=== PATIENT | male | born 1975 ===

== ENCOUNTER 2016-06-18 07:44 | Emergency (ER) | payer BC ==
[2016-06-18 07:45] VITALS: BMI 31.1
[2016-06-18 07:58] VITALS: TEMP 98.2
[2016-06-18] MEDS ORDERED: Bacitracin 500 Units/gm Oint Foilpak UD TOP STA (08:49)
[2016-06-18] MEDS ORDERED: Tetanus/Diphtheria Toxoids 0.5 ml Syringe IM ONE ×2 (08:49→08:59)
[2016-06-18] MEDS ORDERED: Lidocaine 1% w Epi 1:100,000 Inj INJ STA (08:50)
[2016-06-18] MEDS ORDERED: Bacitracin 500 Units/gm Oint Foilpak UD ONE (08:58)
[2016-06-18] MEDS ORDERED: Lidocaine 1% Inj (20ml) INFIL STA (09:06)
[2016-06-18] MEDS ORDERED: Lidocaine 1% Inj (20ml) ONE (09:07)
--- NOTE | 2016-06-18 09:49 | CT ---
CT maxillofacial bones without IV contrast Indication: Fall, left facial pain, chin laceration Comparison: None available Technique: Axial computed tomography images were obtained of the maxillofacial bones without the use of intravenous contrast. Coronal and sagittal reformatted images were generated and reviewed. This CT exam was performed using 1 or more of the falling dose reduction techniques: Automated exposure control, adjustment of the MAA and/or kV according to patient size, and/or use of iterative reconstruction technique. Radiation dose: Total exam DLP = 858.49 mGy-cm. Findings: Streak artifact from dental hardware. The facial bones appear intact displaced without acute fracture. The orbits appear unremarkable. The temporomandibular joints are located. Mastoid air cells appear clear. Mucosal thickening of the ethmoid air cells. Mucosal thickening of bilateral maxillary sinuses. Large (approximately 14 mm) left maxillary sinus mucosal cysts/retention polyp. The frontal sinuses appear clear. The sphenoid sinuses appear clear. No evidence of paranasal sinus air-fluid levels. The visualized brain appears grossly unremarkable. Impression: No acute fracture identified. Mucosal thickening of the ethmoid air cells. Mucosal thickening of bilateral maxillary sinuses. Large (approximately 14 mm) left maxillary sinus mucosal cysts/retention polyp. Correlate clinically for sinusitis.
--- NOTE | 2016-06-18 10:42 | C.PDOC ---
History Of Present Illness 40 year old male presents to the ED with complaints of jaw pain and chin laceration after tripping and falling last night and hitting his face on the ground. Patient went to [facility] [place] [place] last night at 11pm but due to the wait and business of the ED he left. Patient denies Headache, LOC or any other trauma at this time. Tetanus vaccination is not UTD. - HPI Time Seen by Provider: 06/18/16 08:14 Chief Complaint (Nursing): Trauma History Per: Patient History/Exam Limitations: no limitations Onset/Duration Of Symptoms: Hrs Injury Occurred (Timing): Hours Ago: (last night prior to ED visit today) Location Of Injury: Anterior: Face Severity: Moderate Pain Scale Rating Of: 5 Recent travel outside of the [place]: No - Fall Fall:Prior To Injury: Tripped Past Medical History Reviewed: Historical Data, Nursing Documentation, Vital Signs Vital Signs: Last Vital Signs Temp 98.2 F 06/18/16 10:53 Pulse 78 06/18/16 10:53 Resp 16 06/18/16 10:53 BP 117/78 06/18/16 10:53 Pulse Ox 95 06/18/16 13:16 - Medical History PMH: Anxiety, Asthma, Depression, Diverticulitis, Gastritis, Gall Bladder Disease (Kerri Hurtado 2003), Pancreatitis, Post Traumatic Stress Disorder, Sleep Apnea (sleeps with bipap) Surgical History: Appendectomy, Cholecystectomy, Tonsillectomy - [facility] Procedures C.A.T. SCAN OF ABDOMEN (09/19/13) EXC OF ACCESSORY SPLEEN (03/25/13) OPEN AND OTHER SIGMOIDECTOMY (03/25/13) OTH PLASTIC REPAIR PALAT (09/06/13) PERCUTANEOUS ABDOMINAL DRAINAGE (09/19/13) PLASTIC OP ON PHARYNX (09/06/13) URETERAL CATHETERIZATION (03/25/13) Family History: States: Unknown Family Hx - Social History Hx Tobacco Use: Yes Hx Alcohol Use: Yes Hx Substance Use: No - Immunization History Hx Tetanus Toxoid Vaccination: No Hx Influenza Vaccination: Yes Hx Pneumococcal Vaccination: No Review Of Systems Constitutional: Negative for: Fever, Chills, Sweats Gastrointestinal: Negative for: Nausea, Vomiting, Diarrhea Skin: Positive for: Other (laceration on the chin ). Negative for: Rash Neurological: Negative for: Weakness, Confusion, Dizziness Physical Exam - Physical Exam Appears: Non-toxic, No Acute Distress Skin: Warm, Dry Head: Tenderness (tenderness of the mandible mostly on the left and left cheek tenderness), No Swelling, No Abrasion, Laceration (3 cm laceration mid-chin ) Oral Mucosa: Moist Neck: Normal ROM, Supple Chest: Symmetrical, No Deformity Cardiovascular: Rhythm Regular, No Murmur Respiratory: No Accessory Muscle Use, No Rales, No Rhonchi, No Stridor, No Wheezing Gastrointestinal/Abdominal: Soft, No Tenderness, No Distention, No Guarding, No Rebound Extremity: Normal ROM, No Tenderness Neurological/Psych: Oriented x3 ED Course And Treatment O2 Sat by Pulse Oximetry: 95 (room air ) Progress Note: CT maxillofacial bones without IV contrast. Indication: Fall, left facial pain, chin laceration. Comparison: None available. Technique: Axial computed tomography images were obtained of the maxillofacial bones without the use of intravenous contrast. Coronal and sagittal reformatted images were generated and reviewed. This CT exam was performed using 1 or more of the falling dose reduction techniques: Automated exposure control, adjustment of the MAA and/or kV according to patient size, and/or use of iterative reconstruction technique. Radiation dose: Total exam DLP = 858.49 mGy-cm. Findings: Streak artifact from dental hardware. The facial bones appear intact displaced without acute fracture. The orbits appear unremarkable. The temporomandibular joints are located. Mastoid air cells appear clear. Mucosal thickening of the ethmoid air cells. Mucosal thickening of bilateral maxillary sinuses. Large (approximately 14 mm) left maxillary sinus mucosal cysts/retention polyp. The frontal sinuses appear clear. The sphenoid sinuses appear clear. No evidence of paranasal sinus air-fluid levels. The visualized brain appears grossly unremarkable. Impression: No acute fracture identified. Mucosal thickening of the ethmoid air cells. Mucosal thickening of bilateral maxillary sinuses. Large (approximately 14 mm) left maxillary sinus mucosal cysts/retention polyp. Correlate clinically for sinusitis. Laceration - Laceration Repair chin Wound Length (In cm): 3 Description Of Wound: Linear Anesthesia: Lidocaine 1% Wound Examination: Irrigated With Saline, No FB With Wound Exploration Wound Closure: Suture (6) Suture Technique And Material Used: Interrupted, Nylon (5-0) Wound Complexity: Simple Medical Decision Making Medical Decision Making: Laceration repair was performed, 6 stitches or 5-0 nylon. Injection of ancef and tetanus were given. Disposition - Disposition Disposition: HOME/ ROUTINE Disposition Time: 10:35 Condition: STABLE Additional Instructions: Follow up with PMD within 1-2 days. Return to Ed if feel worse. Wound check in 2 days. Suture removal in 7 days. Prescriptions: Bacitracin OINT 1 applic TP TID #45 g Cephalexin [Keflex] 500 mg PO Q6 #28 cap Instructions: Facial Contusion (ED), Facial Laceration (ED) - Clinical Impression Clinical Impression: Contusion of face, Chin laceration - Scribe Statement The provider has reviewed the documentation as recorded by the Scribe Mica Martinez All medical record entries made by the Scribe were at my direction and personally dictated by me. I have reviewed the chart and agree that the record accurately reflects my personal performance of the history, physical exam, medical decision making, and the department course for this patient. I have also personally directed, reviewed, and agree with the discharge instructions and disposition.
[2016-06-18 10:54] VITALS: BP 117/78; PULSE 78; RESP 16
[2016-06-18 12:28] VITALS: O2SAT 95
== END 2016-06-18 10:56 | disposition home or self-care (01) ==
LOC: C.ER 07:44
DX: S01.81XA Laceration without foreign body of other part of head, initial encounter (principal); W01.0XXA Fall on same level from slipping, tripping and stumbling without subsequent striking against object, initial encounter; Y92.410 Unspecified street and highway as the place of occurrence of the external cause
CPT/HCPCS: 12013; 70486; 90471; 90714; 96372; 99285; J0690

== ENCOUNTER 2016-06-20 07:04 | Emergency (ER) | payer BC ==
[2016-06-20 07:04] VITALS: BMI 31.1
[2016-06-20] MEDS ORDERED: Oxycodone/Acetaminophen 5/325 mg Tab PO STA (07:37)
[2016-06-20] MEDS ORDERED: Oxycodone/Acetaminophen 5/325 mg Tab ONE (07:59)
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
[2016-06-20 11:50] VITALS: BP 150/82; PULSE 68; RESP 18; TEMP 98.3
[2016-06-20 14:21] VITALS: O2SAT 98
== END 2016-06-20 11:48 | disposition home or self-care (01) ==
LOC: C.ER 07:04
DX: S20.219A Contusion of unspecified front wall of thorax, initial encounter (principal); S00.83XD Contusion of other part of head, subsequent encounter; V03.10XD Pedestrian on foot injured in collision with car, pick-up truck or van in traffic accident, subsequent encounter; Z48.00 Encounter for change or removal of nonsurgical wound dressing

== ENCOUNTER 2016-06-25 09:28 | Emergency (ER) | payer BC ==
[2016-06-25 09:28] VITALS: BMI 31.1
[2016-06-25 09:33] VITALS: BP 129/77; PULSE 74; RESP 16; TEMP 98.4; O2SAT 98
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
== END 2016-06-25 10:19 | disposition home or self-care (01) ==
LOC: C.ER 09:28
DX: Z48.02 Encounter for removal of sutures (principal)

== ENCOUNTER 2016-07-14 21:45 | Emergency (ER) | payer BC ==
[2016-07-14 21:45] VITALS: BMI 31.1
[2016-07-14 22:11] VITALS: BP 112/83
[2016-07-14] MEDS ORDERED: guaiFENesin 100 mg/5 ml Syrup UD PO STA (22:24)
[2016-07-14] MEDS ORDERED: guaiFENesin 100 mg/5 ml Syrup UD ONE (22:30)
--- NOTE | 2016-07-14 22:54 | C.PDOC ---
History Of Present Illness Patient is a 41 year old male who presents to the ER with a complaint of a dry nonproductive cough and a headache. Patient reports his mother has similar symptoms and note he shares a room with her. Denies fever, chills, nausea or vomiting. Time Seen by Provider: 07/14/16 22:18 Chief Complaint (Nursing): Abdominal Pain History Per: Patient History/Exam Limitations: no limitations Onset/Duration Of Symptoms: Hrs Current Symptoms Are (Timing): Still Present Location Of Pain: Headache Sick Contacts (Context): Family Member(s) (Mother) Associated Symptoms: Cough. denies: Fever, Chills, Sputum, Nausea, Vomiting Recent travel outside of the [place]: No Past Medical History Reviewed: Historical Data, Nursing Documentation, Vital Signs Vital Signs: Last Vital Signs Temp 100.9 F H 07/14/16 23:18 Pulse 92 H 07/14/16 23:18 Resp 18 07/14/16 23:18 BP 112/83 07/14/16 22:08 Pulse Ox 99 07/14/16 23:18 - Medical History PMH: Anxiety, Asthma, Depression, Diverticulitis, Gastritis, Gall Bladder Disease (Kerri Hurtado 2003), Pancreatitis, Post Traumatic Stress Disorder, Sleep Apnea (NO LONGER USES, HAD SURGERY) Surgical History: Appendectomy, Cholecystectomy, Tonsillectomy - [facility] Procedures C.A.T. SCAN OF ABDOMEN (09/19/13) EXC OF ACCESSORY SPLEEN (03/25/13) OPEN AND OTHER SIGMOIDECTOMY (03/25/13) OTH PLASTIC REPAIR PALAT (09/06/13) PERCUTANEOUS ABDOMINAL DRAINAGE (09/19/13) PLASTIC OP ON PHARYNX (09/06/13) URETERAL CATHETERIZATION (03/25/13) Family History: States: Unknown Family Hx - Social History Hx Tobacco Use: Yes Hx Alcohol Use: Yes Hx Substance Use: No - Immunization History Hx Tetanus Toxoid Vaccination: Yes Hx Influenza Vaccination: No Hx Pneumococcal Vaccination: No Review Of Systems Constitutional: Negative for: Fever, Chills Respiratory: Positive for: Cough. Negative for: Sputum Gastrointestinal: Negative for: Nausea, Vomiting Neurological: Positive for: Headache Physical Exam - Physical Exam Appears: Well, Non-toxic Skin: Normal Color, Warm, Dry Head: Atraumatic, Normacephalic Eye(s): bilateral: Normal Inspection, EOMI Oral Mucosa: Moist Throat: Normal, Erythema (Mild) Neck: Normal, Supple Chest: Symmetrical, No Tenderness Cardiovascular: Rhythm Regular, No Murmur Respiratory: Normal Breath Sounds, No Rales, No Rhonchi, No Wheezing Gastrointestinal/Abdominal: Soft, No Tenderness Neurological/Psych: Oriented x3, Normal Speech, Normal Cognition ED Course And Treatment O2 Sat by Pulse Oximetry: 97 (Room air) Pulse Ox Interpretation: Normal - Radiology CXR: Interpreted by Me CXR Interpretation: Yes: No Acute Disease Progress Note: motrin/robitussin Reevaluation Time: 22:50 Reassessment Condition: Improved Medical Decision Making Medical Decision Making: mother with same symptoms, sore throat and dry non-prod cough most likely viral syndrome treat with OTC meds. Disposition Doctor Will See Patient In The: Office Counseled Patient/Family Regarding: Studies Performed, Diagnosis - Disposition Referrals: Lele Morales Jr., MD [Primary Care Provider] - Disposition: HOME/ ROUTINE Disposition Time: 22:54 Condition: GOOD Additional Instructions: continue dayquil/Nyquil as directed drink plenty of fluids no work until afebile for 24 hours. Instructions: Viral Syndrome (ED) - Clinical Impression Clinical Impression: Viral syndrome - Scribe Statement The provider has reviewed the documentation as recorded by the Scribjad Funes All medical record entries made by the Myrandaibjad were at my direction and personally dictated by me. I have reviewed the chart and agree that the record accurately reflects my personal performance of the history, physical exam, medical decision making, and the department course for this patient. I have also personally directed, reviewed, and agree with the discharge instructions and disposition.
[2016-07-14 23:19] VITALS: PULSE 92; RESP 18; TEMP 100.9
[2016-07-15 00:25] VITALS: O2SAT 97
--- NOTE | 2016-07-15 11:50 | RAD ---
HISTORY: cough, bronchitis vs PNA COMPARISON: 03/27/2013 TECHNIQUE: Chest PA and lateral FINDINGS: LUNGS: No active pulmonary disease. PLEURA: No significant pleural effusion identified. No pneumothorax apparent. CARDIOVASCULAR: Normal. OSSEOUS STRUCTURES: No significant abnormalities. VISUALIZED UPPER ABDOMEN: Normal. OTHER FINDINGS: None. IMPRESSION: No active disease.
== END 2016-07-14 23:19 | disposition home or self-care (01) ==
LOC: SUPCPDRO 21:45 → C.ER 21:45
DX: B34.9 Viral infection, unspecified (principal)

== ENCOUNTER 2016-12-09 23:42 | Emergency (ER) | payer BC ==
[2016-12-09 23:42] VITALS: BMI 31.1
[2016-12-10 00:23] VITALS: PULSE 82
--- NOTE | 2016-12-10 01:43 | C.PDOC ---
History Of Present Illness 41 yo male come in for evaluation of Right sided facial rash for past 2 months. Pt sts, rash is itchy at time, red after taking shower. Pt admits, was seen by PMD due to same complaints, completed pills without improvement. Pt denies use of cream , contrary to triage note. Otherwise, pt denies fever, chills, weakness , dizziness, bodyaches, weight loss, denies exposure to known allergen, denies any other active complaints. Ambulate to Ed for evaluation, not in any apparent distress. Time Seen by Provider: 12/10/16 00:44 Chief Complaint (Nursing): Abnormal Skin Integrity History Per: Patient Past Medical History Reviewed: Historical Data, Nursing Documentation, Vital Signs Vital Signs: Last Vital Signs Temp 98.4 F 12/10/16 00:19 Pulse 82 12/10/16 00:19 Resp 16 12/10/16 00:19 BP 150/95 H 12/10/16 00:19 Pulse Ox 97 12/10/16 00:19 - Medical History PMH: Anxiety, Asthma, Depression, Diverticulitis, Gastritis, Gall Bladder Disease (Kerri Hurtado 2003), Pancreatitis, Post Traumatic Stress Disorder, Sleep Apnea (NO LONGER USES, HAD SURGERY) Denies: Chronic Kidney Disease Surgical History: Appendectomy, Cholecystectomy, Tonsillectomy - [facility] Procedures C.A.T. SCAN OF ABDOMEN (09/19/13) EXC OF ACCESSORY SPLEEN (03/25/13) OPEN AND OTHER SIGMOIDECTOMY (03/25/13) OTH PLASTIC REPAIR PALAT (09/06/13) PERCUTANEOUS ABDOMINAL DRAINAGE (09/19/13) PLASTIC OP ON PHARYNX (09/06/13) URETERAL CATHETERIZATION (03/25/13) Family History: States: Unknown Family Hx - Social History Hx Tobacco Use: Yes Hx Alcohol Use: Yes Hx Substance Use: No - Immunization History Hx Tetanus Toxoid Vaccination: Yes Hx Influenza Vaccination: No Hx Pneumococcal Vaccination: No Review Of Systems Except As Marked, All Systems Reviewed And Found Negative. Constitutional: Negative for: Fever, Chills Eyes: Negative for: Vision Change ENT: Negative for: Ear Discharge, Nose Discharge, Mouth Swelling, Throat Pain, Throat Swelling Cardiovascular: Negative for: Chest Pain Respiratory: Negative for: Cough, Shortness of Breath, Wheezing Gastrointestinal: Negative for: Nausea, Vomiting Musculoskeletal: Negative for: Neck Pain Skin: Positive for: Rash Neurological: Negative for: Weakness, Numbness, Altered Mental Status, Headache , Dizziness Physical Exam - Physical Exam Appears: Well, Non-toxic, No Acute Distress Skin: Normal Color, Warm, Rash (erythematous rim noted around Right side forehead extend down to Right cheek area , posterior to Right ear. Clear center , no erythema, no edema, no excoriation.) Head: Normacephalic Eye(s): bilateral: PERRL Ear(s): Bilateral: Normal Nose: No Flaring, No Discharge Oral Mucosa: Moist, No Drooling Tongue: Normal Appearing Lips: Normal Appearing Gingiva: No Tender, No Abscess Throat: No Erythema, No Exudate, No Drooling, Other (uvula midline, no edema.) Neck: Supple Lymphatic: No Adenopathy (cervical) Respiratory: No Decreased Breath Sounds, No Accessory Muscle Use, No Stridor, No Wheezing Extremity: Normal ROM, No Pedal Edema, No Swelling ED Course And Treatment O2 Sat by Pulse Oximetry: 97 Pulse Ox Interpretation: Normal Progress Note: On re-evaluation, pt is afebrile, hemodynamicaly stable. non- toxic. PulsEOx 97% RA. ENT: no acute findings, uvula midline, no edema. Neck : Supple. Lungs: CTA B/L, BS equal B/L. Neuorlogicaly intact. Skin: Right sided facial rash, nos. Pt advised and ref. to F/u with Derm in 2-3 days for re -eavl. return if any new changes. Disposition Counseled Patient/Family Regarding: Diagnosis, Need For Followup, Rx Given - Disposition Referrals: Lele Morales Jr., MD [Medical Doctor] - Disposition: HOME/ ROUTINE Disposition Time: 01:02 Condition: STABLE Additional Instructions: Apply cream as indicated to area Follow up with Dermatology in 2-3 days for re-evaluation and further treatment. Return to ED if any worsening or new changes. Prescriptions: Clotrimazole 1% Cream [Lotrimin 1%] 1 gm TP DAILY #1 tu Instructions: Tinea Capitis (ED) - Clinical Impression Clinical Impression: Tinea capitis
[2016-12-10 01:56] VITALS: BP 135/81; RESP 18; TEMP 97.9
[2016-12-10 01:58] VITALS: O2SAT 97
== END 2016-12-10 01:55 | disposition home or self-care (01) ==
LOC: C.ER 23:42
DX: B35.0 Tinea barbae and tinea capitis (principal)

== ENCOUNTER 2017-06-15 10:17 | Emergency (ER) | payer SELFPAY ==
[2017-06-15 10:18] VITALS: BMI 31.1
[2017-06-15] MEDS ORDERED: Albuterol 0.083% Inhal Sol (2.5 mg/3 mL) UD INH STA (11:16)
[2017-06-15] MEDS ORDERED: Sodium Chloride 0.9% 1,000 ML IV ONE (11:16)
[2017-06-15] MEDS ORDERED: MethylPREDNISolone 40 mg Vial IVP STA (11:17)
--- NOTE | 2017-06-15 11:49 | C.PDOC ---
History Of Present Illness 41 y/o male with PMHx of Asthma and Diverticulitis presents to ED with c/o persistent dry cough that started last night and caused him SOB today. He tried using his inhaler with no improvement which prompted visit. States this feels like his usual asthma, no new symptoms. Also notes that his abdomen feels "bloated". Notes he had a soft BM this morning. Denies fever, chest pain, nausea , vomiting, symptoms, or any other complaints at this time. Time Seen by Provider: 06/15/17 11:01 Chief Complaint (Nursing): Cough, Cold, Congestion History Per: Patient History/Exam Limitations: no limitations Onset/Duration Of Symptoms: Hrs Current Symptoms Are (Timing): Still Present Past Medical History Reviewed: Historical Data, Nursing Documentation, Vital Signs Vital Signs: Last Vital Signs Temp 98.5 F 06/15/17 14:31 Pulse 71 06/15/17 14:31 Resp 18 06/15/17 14:31 BP 135/78 06/15/17 14:31 Pulse Ox 97 06/15/17 16:02 - Medical History PMH: Anxiety, Asthma, Depression, Diverticulitis, Gastritis, Gall Bladder Disease (Kerri Hurtado 2003), Pancreatitis, Post Traumatic Stress Disorder, Sleep Apnea (NO LONGER USES, HAD SURGERY) Surgical History: Appendectomy, Cholecystectomy, Tonsillectomy - [facility] Procedures C.A.T. SCAN OF ABDOMEN (09/19/13) EXC OF ACCESSORY SPLEEN (03/25/13) OPEN AND OTHER SIGMOIDECTOMY (03/25/13) OTH PLASTIC REPAIR PALAT (09/06/13) PERCUTANEOUS ABDOMINAL DRAINAGE (09/19/13) PLASTIC OP ON PHARYNX (09/06/13) URETERAL CATHETERIZATION (03/25/13) Family History: States: No Known Family Hx - Social History Hx Tobacco Use: Yes Hx Alcohol Use: Yes Hx Substance Use: No - Immunization History Hx Tetanus Toxoid Vaccination: Yes Hx Influenza Vaccination: No Hx Pneumococcal Vaccination: No Review Of Systems Constitutional: Negative for: Fever, Chills Cardiovascular: Positive for: Chest Pain Respiratory: Positive for: Cough, Shortness of Breath Gastrointestinal: Positive for: Abdominal Pain. Negative for: Nausea, Vomiting Skin: Negative for: Rash Physical Exam - Physical Exam Appears: Non-toxic, No Acute Distress Skin: Normal Color, Warm, Dry, No Rash Head: Atraumatic, Normacephalic Eye(s): bilateral: Normal Inspection, PERRL, EOMI Nose: Normal Oral Mucosa: Moist Throat: Normal, No Erythema, No Exudate Neck: Normal ROM, Supple Lymphatic: Normal Exam Chest: Symmetrical Cardiovascular: Rhythm Regular Respiratory: Normal Breath Sounds, No Accessory Muscle Use, No Rales, No Rhonchi , No Wheezing, Other (no coughing noted) Gastrointestinal/Abdominal: Soft, Tenderness (diffuse), Distention, No Guarding , No Rebound Back: No CVA Tenderness, No Vertebral Tenderness Extremity: Normal ROM, Capillary Refill (<2 seconds) Neurological/Psych: Oriented x3, Normal Speech, Normal Cognition ED Course And Treatment - Laboratory Results Result Diagrams: 06/15/17 11:49 06/15/17 11:49 ECG: Interpreted By Me, Viewed By Me ECG Rhythm: Sinus Rhythm Rate From EC (BPM) O2 Sat by Pulse Oximetry: 97 (RA) Pulse Ox Interpretation: Normal Progress Note: Blood work, CXR, EKG ordered. Neb treatment, Protonix and IV fluids administered. On re-evaluation, pt notes he has no SOB. Does not want additional neb. Pt is sitting up, eating food tray and ice cream. Pt notes his abdomen feels better, states "maybe I was just hungry.". On re-evaluation, on re-evaluation, pt notes he had a BM in ER and states he feels much better. Denies abdominal pain, chest pain, or sob. Discussed with pt lab results. Discussed risks and benefits of CT and concern for diverticulitis. Pt notes he is asymptomatic and feels comfortable with discharge. Instructed to return to ER if symtpoms persist or worsen. Disposition - Disposition Referrals: Lele Morales Jr., MD [Medical Doctor] - Disposition: HOME/ ROUTINE Disposition Time: 13:50 Condition: STABLE Additional Instructions: Follow up with your PMD in 1-2 days. Return to ER if symptoms persist or worsen. Prescriptions: Albuterol 0.083% [Albuterol 0.083% Inhal Linda (2.5 mg/3 ml) UD] 2.5 mg IH Q6 PRN #20 neb PRN Reason: Shortness Of Breath predniSONE [Prednisone] 40 mg PO DAILY #8 tab Instructions: Asthma in Adults Forms: [employer] (Irish), Work Excuse - Clinical Impression Clinical Impression: Asthma exacerbation, Abdominal pain - PA / LEVEL VIAL INSPECTOR / Resident Statement MD/DO has reviewed & agrees with the documentation as recorded. - Scribe Statement The provider has reviewed the documentation as recorded by the Myrandaibjad Melton All medical record entries made by the Su were at my direction and personally dictated by me. I have reviewed the chart and agree that the record accurately reflects my personal performance of the history, physical exam, medical decision making, and the department course for this patient. I have also personally directed, reviewed, and agree with the discharge instructions and disposition.
[2017-06-15] MEDS ORDERED: Albuterol-Ipratrop 3 mg / 0.5 (3 ml) UD ONE (11:56)
[2017-06-15 12:02] LABS: BASO % 0.4 % (0.0-2.0); EOS # 0.1 K/uL (0.0-0.7); HEMOGLOBIN 13.4 g/dL (12.0-18.0); LYMPH # 2.1 K/uL (1.0-4.3); LYMPH % 35.3 % (20.0-40.0); MEAN CORPUSCULAR HEMOGLOBIN 29.6 pg (27.0-31.0); MEAN PLATELET VOLUME 9.1 fL (7.2-11.7); MONO # 0.4 K/uL (0.0-0.8); MONO % 6.5 % (0.0-10.0); NEUT # 3.3 K/uL (1.8-7.0); NEUT % 55.8 % (50.0-75.0); RBC 4.54 Mil/uL (4.40-5.90); RED CELL DISTRIBUTION WIDTH 13.6 % (11.5-14.5); WHITE BLOOD COUNT 5.9 K/uL (4.8-10.8)
[2017-06-15 12:02] LABS: SQUAMOUS EPITHIAL < 1 /hpf (0-5); URINE BILIRUBIN NEGATIVE (NEGATIVE); URINE BLOOD NEGATIVE (NEGATIVE); URINE CLARITY Clear (Clear); URINE COLOR Straw (YELLOW); URINE GLUCOSE (UA) NORMAL (Normal); URINE LEUKOCYTE ESTERASE NEG Leu/uL (Negative); URINE PROTEIN NEGATIVE (NEGATIVE); URINE UROBILINOGEN NORMAL mg/dL (0.2-1.0)
[2017-06-15 12:04] LABS: MEAN CELL VOLUME 84.4 fL (80.0-94.0)
[2017-06-15] MEDS ORDERED: Sodium Chloride 0.9% 1,000 ML ONE (12:04)
[2017-06-15 12:14] LABS: ALB/GLOB RATIO 1.3 (1.0-2.1); ALBUMIN 4.3 g/dL (3.5-5.0); ALT/SGPT 32 U/L (21-72); AST/SGOT 30 U/L (17-59); BLOOD UREA NITROGEN 13 mg/dL (9-20); CALCIUM 9.1 mg/dl (8.6-10.4); GFR AFRICAN-AMERICAN > 60; GFR NON-AFRICAN AMERICAN > 60; LIPASE 105 U/L (23-300)
--- NOTE | 2017-06-15 12:23 | RAD ---
Chest x-ray single frontal view History: Shortness of breath. Comparison: 07/14/2016 Findings: Mild venous congestion. Mild cardiomegaly. Degenerative changes in the spine and shoulders. Impression: Mild venous congestion. Mild cardiomegaly.
[2017-06-15 14:32] VITALS: BP 135/78; PULSE 71; RESP 18; TEMP 98.5
[2017-06-15 16:02] VITALS: O2SAT 97
--- NOTE | 2017-06-16 21:57 | CARD ---
APPROVED REPORT EKG Measurement Heart [id number] <Conclusion> Normal sinus rhythm with sinus arrhythmia Moderate voltage criteria for LVH, may be normal variant Nonspecific ST abnormality Abnormal ECG
== END 2017-06-15 14:32 | disposition home or self-care (01) ==
LOC: C.ER 10:17
DX: J45.901 Unspecified asthma with (acute) exacerbation (principal); R10.9 Unspecified abdominal pain; Z90.49 Acquired absence of other specified parts of digestive tract
CPT/HCPCS: 71045; 80053; 81001; 83690; 85025; 93005; 94150; 94640; 96361; 96374; 96375; 99284; C9113; J1885; J2920; J7040

== ENCOUNTER 2017-07-21 02:42 | Emergency (ER) | payer OTHER ==
[2017-07-21 02:42] VITALS: BMI 31.1
--- NOTE | 2017-07-21 03:03 | C.PDOC ---
History Of Present Illness 42 y/o male presents to the ED complaining of abdominal pain and vomiting. States he could not sleep due to the pain. No fevers or chills. Patient is still tolerating PO. He notes worsening symptoms over the past few weeks. Also complaining of left flank pain radiating to the groin. Time Seen by Provider: 07/21/17 03:02 Chief Complaint (Nursing): Abdominal Pain History Per: Patient History/Exam Limitations: no limitations Onset/Duration Of Symptoms: Days Current Symptoms Are (Timing): Still Present Severity: Moderate Pain Scale Rating Of: 6 Radiation Of Pain To:: Flank Quality Of Discomfort: "Pain" Associated Symptoms: Vomiting. denies: Fever, Chills Exacerbating Factors: None Alleviating Factors: None Past Medical History Reviewed: Historical Data, Nursing Documentation, Vital Signs Vital Signs: Last Vital Signs Temp 98.2 F 07/21/17 02:47 Pulse 95 H 07/21/17 02:47 Resp 22 07/21/17 02:47 BP 149/93 H 07/21/17 02:47 Pulse Ox 98 07/21/17 03:35 - Medical History PMH: Anxiety, Asthma, Depression, Diverticulitis, Gastritis, Gall Bladder Disease (Kerri Hurtado 2003), Pancreatitis, Post Traumatic Stress Disorder, Sleep Apnea (NO LONGER USES, HAD SURGERY) Denies: Chronic Kidney Disease Surgical History: Appendectomy, Cholecystectomy, Tonsillectomy - [facility] Procedures C.A.T. SCAN OF ABDOMEN (09/19/13) EXC OF ACCESSORY SPLEEN (03/25/13) OPEN AND OTHER SIGMOIDECTOMY (03/25/13) OTH PLASTIC REPAIR PALAT (09/06/13) PERCUTANEOUS ABDOMINAL DRAINAGE (09/19/13) PLASTIC OP ON PHARYNX (09/06/13) URETERAL CATHETERIZATION (03/25/13) Family History: States: Unknown Family Hx - Social History Hx Tobacco Use: Yes Hx Alcohol Use: Yes Hx Substance Use: No - Immunization History Hx Tetanus Toxoid Vaccination: Yes Hx Influenza Vaccination: No Hx Pneumococcal Vaccination: No Review Of Systems Constitutional: Negative for: Fever, Chills Gastrointestinal: Positive for: Nausea, Vomiting, Abdominal Pain. Negative for : Diarrhea Musculoskeletal: Positive for: Other (left flank pain) Physical Exam - Physical Exam Appears: Non-toxic, No Acute Distress Skin: Warm, Dry Head: Normacephalic Eye(s): bilateral: Normal Inspection Oral Mucosa: Moist Neck: Trachea Midline, Supple Chest: Symmetrical Cardiovascular: Rhythm Regular Respiratory: No Rales, No Rhonchi, No Wheezing Gastrointestinal/Abdominal: Soft, Tenderness (to left flank), No Guarding, No Rebound Back: Normal Inspection Extremity: Bilateral: Atraumatic, Normal Color And Temperature, Normal ROM Pulses: Left Dorsalis Pedis: Normal, Right Dorsalis Pedis: Normal Neurological/Psych: Oriented x3 Gait: Steady ED Course And Treatment - Laboratory Results Result Diagrams: 07/21/17 03:41 07/21/17 03:41 O2 Sat by Pulse Oximetry: 98 (RA) Pulse Ox Interpretation: Normal Progress Note: Patient started on IV fluids, Protonix, and Toradol. Labs ordered and reviewed. Reevaluation Time: 05:33 Reassessment Condition: Improved Disposition Counseled Patient/Family Regarding: Studies Performed, Diagnosis, Need For Followup - Disposition Referrals: Lele Morales Jr., MD [Medical Doctor] - Disposition: HOME/ ROUTINE Disposition Time: 03:03 Condition: FAIR Additional Instructions: Please return if symptoms recur Instructions: Gastritis (DC) Forms: [employer] (Ghanaian) - Clinical Impression Clinical Impression: Abdominal colic, Gastritis - Scribe Statement The provider has reviewed the documentation as recorded by the Scribe (Nia Lanier) Provider Attestation: All medical record entries made by the Scribe were at my direction and personally dictated by me. I have reviewed the chart and agree that the record accurately reflects my personal performance of the history, physical exam, medical decision making, and the department course for this patient. I have also personally directed, reviewed, and agree with the discharge instructions and disposition.
[2017-07-21] MEDS ORDERED: Sodium Chloride 0.9% 1,000 ML IV ONE (03:14)
[2017-07-21 03:45] LABS: BASO % 0.3 % (0.0-2.0); EOS # 0.3 K/uL (0.0-0.7); EOS % 3.2 % (0.0-4.0); HEMOGLOBIN 13.4 g/dL (12.0-18.0); LYMPH # 3.2 K/uL (1.0-4.3); LYMPH % 37.9 % (20.0-40.0); MEAN CELL VOLUME 84.2 fL (80.0-94.0); MEAN CORPUSCULAR HGB CONC 35.6 g/dL (33.0-37.0); MEAN PLATELET VOLUME 9.1 fL (7.2-11.7); MONO # 0.4 K/uL (0.0-0.8); MONO % 5.2 % (0.0-10.0); NEUT # 4.5 K/uL (1.8-7.0); NEUT % 53.4 % (50.0-75.0); RBC 4.48 Mil/uL (4.40-5.90); RED CELL DISTRIBUTION WIDTH 13.6 % (11.5-14.5); WHITE BLOOD COUNT 8.3 K/uL (4.8-10.8)
[2017-07-21 03:48] LABS: INR 1.1; PROTHROMBIN TIME 12.4 SECONDS (9.7-12.2); URINE BILIRUBIN NEGATIVE (NEGATIVE); URINE BLOOD NEGATIVE (NEGATIVE); URINE CLARITY Clear (Clear); URINE COLOR Colorless (YELLOW); URINE GLUCOSE (UA) NORMAL (Normal); URINE LEUKOCYTE ESTERASE NEG Leu/uL (Negative); URINE PROTEIN NEGATIVE (NEGATIVE); URINE UROBILINOGEN NORMAL mg/dL (0.2-1.0)
[2017-07-21 03:52] LABS: ALB/GLOB RATIO 1.2 (1.0-2.1); ALBUMIN 4.2 g/dL (3.5-5.0); ALT/SGPT 39 U/L (21-72); AST/SGOT 29 U/L (17-59); BLOOD UREA NITROGEN 11 mg/dL (9-20); CALCIUM 8.8 mg/dl (8.6-10.4); GFR AFRICAN-AMERICAN > 60; GFR NON-AFRICAN AMERICAN > 60; LIPASE 185 U/L (23-300)
[2017-07-21] MEDS ORDERED: Iodixanol 320 MG/ML 100 ML BOTTLE IV ONE (04:29)
--- NOTE | 2017-07-21 05:29 | CT ---
EXAM: CT Abdomen and Pelvis With Intravenous Contrast CLINICAL HISTORY: 42 years old, male; Pain; Abdominal pain; Prior surgery; Surgery type: Appendectomy , colectomy and hernia; Patient HX: 04-01-16; Additional info: Llq abd pain TECHNIQUE: Axial computed tomography images of the abdomen and pelvis with intravenous contrast. All CT scans at this facility use one or more dose reduction techniques, viz.: automated exposure control; ma/kV adjustment per patient size (including targeted exams where dose is matched to indication; i.e. head); or iterative reconstruction technique. 654 images are submitted. Axial images are submitted in soft tissue and lung windows. Coronal and sagittal reformatted images were created and reviewed. Axial reformatted images were created and reviewed. CONTRAST: 100 mL of [id number] administered intravenously. COMPARISON: CT - ABD PELVIS PO IV CONTRAST 2016-04-01 11:46 FINDINGS: Lung bases: Elevation of right hemidiaphragm. Mediastinum: Small hiatal hernia. ABDOMEN: Liver: Enlarged fatty liver. Gallbladder and bile ducts: Cholecystectomy. Pancreas: Unremarkable. No mass. No ductal dilation. Spleen: Left upper quadrant splenule. Adrenals: Unremarkable. No mass. Kidneys and ureters: Unremarkable. No solid mass. No hydronephrosis. Stomach and bowel: Partial sigmoidectomy. Left lower quadrant sigmoid postoperative changes. Diverticulosis. Moderate to large amount of stool in the colon. There are nonspecific fluid filled stomach, small bowel loops. These findings can represent ileus versus gastroenteritis/enteritis versus slow transit versus peristalsis. PELVIS: Appendix: Appendectomy. Bladder: Possible urachal remnant.Partially distended bladder with bladder wall thickening. Correlation with urinalysis is recommended only if clinical cystitis is suspected. Reproductive: Enlarged prostate gland. ABDOMEN and PELVIS: Intraperitoneal space: Unremarkable. No free air. No significant fluid collection. Bones/joints: No acute fracture. No dislocation. Soft tissues: Unremarkable. Vasculature: Unremarkable. No abdominal aortic aneurysm. Lymph nodes: Subcentimeter mesenteric lymph nodes. IMPRESSION: No acute findings.
[2017-07-21 05:46] VITALS: BP 118/72; PULSE 67; RESP 16; TEMP 98.8; O2SAT 97
== END 2017-07-21 05:47 | disposition home or self-care (01) ==
LOC: C.ER 02:42
DX: K29.70 Gastritis, unspecified, without bleeding (principal); R10.84 Generalized abdominal pain
CPT/HCPCS: 74177; 80053; 81001; 83690; 85025; 85610; 85730; 96361; 96374; 96375; 99284; C9113; J1885; J7030; Q9967

== ENCOUNTER 2017-10-26 07:38 | Emergency (ER) | payer MEDICAID ==
[2017-10-26 07:55] VITALS: BMI 26.9
--- NOTE | 2017-10-26 08:06 | C.PDOC ---
History Of Present Illness 42 y/o male c/o upper back pain and left lower back pain that radiates down left leg for some time, with no numbness, tingling, weakness, saddle anesthesia , bladder or bowel dysfunction. pt seen by pain management last (10/17), and was given percocet (8 day supply per [employer]) and flexeril. pt sts he was unable to seen on for follow up with pain management due to insurance reasons. pt taking flexeril with out much relief. Time Seen by Provider: 10/26/17 08:01 Chief Complaint (Nursing): Back Pain History Per: Patient History/Exam Limitations: no limitations Onset/Duration Of Symptoms: Days (chronic for months, worse in last few weeks) Current Symptoms Are (Timing): Still Present Quality Of Discomfort: "Pain" Severity: Moderate Previous Symptoms: Back Pain, Neck Pain, Chronic Pain Associated Symptoms: denies: Incontinence, New Weakness, New Numbness Exacerbating Factor(s): Movement, Sitting Past Medical History Reviewed: Historical Data, Nursing Documentation, Vital Signs Vital Signs: Last Vital Signs Temp 98.6 F 10/26/17 09:34 Pulse 89 10/26/17 09:34 Resp 16 10/26/17 09:34 BP 121/79 10/26/17 09:34 Pulse Ox 99 10/26/17 09:34 - Medical History PMH: Anxiety, Asthma, Depression, Diverticulitis, Gastritis, Gall Bladder Disease (Kerri Hurtado 2003), Pancreatitis, Post Traumatic Stress Disorder, Sleep Apnea (NO LONGER USES, HAD SURGERY) Denies: Chronic Kidney Disease Surgical History: Appendectomy, Cholecystectomy, Tonsillectomy - [facility] Procedures C.A.T. SCAN OF ABDOMEN (09/19/13) EXC OF ACCESSORY SPLEEN (03/25/13) OPEN AND OTHER SIGMOIDECTOMY (03/25/13) OTH PLASTIC REPAIR PALAT (09/06/13) PERCUTANEOUS ABDOMINAL DRAINAGE (09/19/13) PLASTIC OP ON PHARYNX (09/06/13) URETERAL CATHETERIZATION (03/25/13) Family History: States: Unknown Family Hx - Social History Hx Tobacco Use: Yes Hx Alcohol Use: Yes Hx Substance Use: No - Immunization History Hx Tetanus Toxoid Vaccination: Yes Hx Influenza Vaccination: No Hx Pneumococcal Vaccination: No Review Of Systems Constitutional: Negative for: Fever, Chills Cardiovascular: Negative for: Chest Pain Respiratory: Negative for: Cough, Shortness of Breath Gastrointestinal: Negative for: Nausea, Vomiting, Abdominal Pain Genitourinary: Negative for: Dysuria, Incontinence Musculoskeletal: Positive for: Neck Pain, Shoulder Pain, Back Pain Skin: Negative for: Rash, Bruising Neurological: Negative for: Weakness, Numbness Physical Exam - Physical Exam Appears: Non-toxic, No Acute Distress Skin: Warm, Dry Head: Atraumatic, Normacephalic Gastrointestinal/Abdominal: Bowel Sounds, Soft, No Tenderness, No Distention, No Guarding, No Rebound Back: No Vertebral Tenderness, No Decreased ROM, Paraspinal Tenderness ( bilateral trapezius, b/l paralumbar, left sciatic notch), No Straight Leg Raising Extremity: No Pedal Edema, No Calf Tenderness Neurological/Psych: Oriented x3, Normal Speech, Normal Cognition, Normal Motor, Normal Sensation ED Course And Treatment O2 Sat by Pulse Oximetry: 98 Medical Decision Making Medical Decision Making: discussed with patient that we are unable to refill narcotic prescription and will try other pain mgmt options, pt to be given names of other pain management doctors, [employer] [facility], recommend to call [facility] for pain web specialist in his network, as well as follow up with Dr Ramos as scheduled on 11/07 for physical therapy referral., pt expresses understanding of plan. 0920 pt reports decreased pain, feels ready to go home. Disposition Counseled Patient/Family Regarding: Diagnosis, Need For Followup, Rx Given - Disposition Referrals: Flaca Ramos MD [Staff Provider] - Tigre Brannon MD [Non-Staff] - Jass Garvin MD [Staff Provider] - Blas Monroy MD [Staff Provider] - [employer] [facility] [Outside] Disposition: HOME/ ROUTINE Disposition Time: 09:22 Condition: IMPROVED Additional Instructions: Please follow up with Dr Ramos on 11/07 as scheduled and recommend referral to physical therapy. Call your insurance company, [employer] as well as the pain management doctors listed on discharge papers to find a doctor who accepts your insurance. Take lidoderm patch off after 12 hours. Use numbning cream prescribed by your doctor, as well as Flexeril. Tkae Naproxen as prescribed. Warm or cold compresses to painful areas may be helpful as well. Return to ER for any worsening symptoms. Prescriptions: Naproxen 500 mg PO BID #30 tab Instructions: Sciatica (DC), Sciatica Exercises Forms: [facility] (Urdu), General Discharge Instructions - Clinical Impression Clinical Impression: Sciatica, Trapezius muscle strain
[2017-10-26] MEDS ORDERED: Lidocaine 5% Patch TD STA (08:23)
[2017-10-26] MEDS ORDERED: Lidocaine 5% Patch TD ONE (08:39)
[2017-10-26 09:37] VITALS: BP 121/79; PULSE 89; RESP 16; TEMP 98.6
[2017-10-27 07:48] VITALS: O2SAT 98
== END 2017-10-26 09:36 | disposition home or self-care (01) ==
LOC: C.ER 07:38
DX: M54.32 Sciatica, left side (principal); S29.012A Strain of muscle and tendon of back wall of thorax, initial encounter; X58.XXXA Exposure to other specified factors, initial encounter
CPT/HCPCS: 96372; 99284; J1885

== ENCOUNTER 2017-11-27 16:34 | Emergency (ER) | payer MEDICAID, OTHER ==
[2017-11-27 16:34] VITALS: BMI 26.9
[2017-11-27 18:26] VITALS: BP 125/74; PULSE 81; RESP 18; TEMP 98.2; O2SAT 95
--- NOTE | 2017-11-27 18:26 | RAD ---
HISTORY: r/o infiltrate COMPARISON: Chest x-ray performed 06/15/17 TECHNIQUE: Chest PA and lateral FINDINGS: LUNGS: Mild patchy infiltrate/atelectasis within the right middle lobe. Please note that chest x-ray has limited sensitivity for the detection of pulmonary masses. PLEURA: No significant pleural effusion identified. No definite pneumothorax . CARDIOVASCULAR: Cardiomegaly. OSSEOUS STRUCTURES: Degenerative changes. VISUALIZED UPPER ABDOMEN: Mild elevation of the right hemidiaphragm. Cholecystectomy clips. OTHER FINDINGS: None. IMPRESSION: Mild patchy right middle lobe atelectasis/infiltrate. Cardiomegaly. Mild elevation of the right hemidiaphragm.
--- NOTE | 2017-11-27 19:47 | C.PDOC ---
History Of Present Illness 42 year old male presents to the ER with a complaint of a productive cough for the past 5-6 days associated with subjective fever and body aches. He has been taking tylenol and OTC cough medicine with little relief. Denies recent travel or sick contact. Chief Complaint (Nursing): Flu-like Symptoms History Per: Patient History/Exam Limitations: no limitations Onset/Duration Of Symptoms: Days Current Symptoms Are (Timing): Still Present Location Of Pain: None Sick Contacts (Context): None Associated Symptoms: Fever (Subjective), Cough, Myalgias Recent travel outside of the [place]: No Past Medical History Reviewed: Historical Data, Nursing Documentation, Vital Signs Vital Signs: Last Vital Signs Temp 98.2 F 11/27/17 18:25 Pulse 81 11/27/17 18:25 Resp 18 11/27/17 18:25 BP 125/74 11/27/17 18:25 Pulse Ox 95 11/27/17 18:25 - Medical History PMH: Anxiety, Asthma, Depression, Diverticulitis, Gastritis, Gall Bladder Disease (Kerri Hurtado 2003), Pancreatitis, Post Traumatic Stress Disorder, Sleep Apnea (NO LONGER USES, HAD SURGERY) Denies: Chronic Kidney Disease Surgical History: Appendectomy, Cholecystectomy, Tonsillectomy - [facility] Procedures C.A.T. SCAN OF ABDOMEN (09/19/13) EXC OF ACCESSORY SPLEEN (03/25/13) OPEN AND OTHER SIGMOIDECTOMY (03/25/13) OTH PLASTIC REPAIR PALAT (09/06/13) PERCUTANEOUS ABDOMINAL DRAINAGE (09/19/13) PLASTIC OP ON PHARYNX (09/06/13) URETERAL CATHETERIZATION (03/25/13) Family History: States: Unknown Family Hx - Social History Hx Tobacco Use: Yes Hx Alcohol Use: Yes Hx Substance Use: No - Immunization History Hx Tetanus Toxoid Vaccination: Yes Hx Influenza Vaccination: No Hx Pneumococcal Vaccination: No Review Of Systems Constitutional: Positive for: Fever (Subject) Cardiovascular: Negative for: Chest Pain, Palpitations Respiratory: Positive for: Cough, Sputum. Negative for: Shortness of Breath Gastrointestinal: Negative for: Nausea, Vomiting Physical Exam - Physical Exam Appears: Non-toxic Skin: Normal Color, Warm, Dry Head: Atraumatic, Normacephalic Eye(s): bilateral: Normal Inspection Ear(s): Bilateral: Normal Nose: Normal Oral Mucosa: Moist Throat: Normal, No Erythema, No Exudate Neck: Normal, Supple Chest: Symmetrical, No Tenderness Cardiovascular: Rhythm Regular Respiratory: Normal Breath Sounds, No Rales, No Rhonchi, No Wheezing Gastrointestinal/Abdominal: Soft, No Tenderness Neurological/Psych: Oriented x3, Normal Speech ED Course And Treatment O2 Sat by Pulse Oximetry: 95 (Room air) Pulse Ox Interpretation: Normal - Radiology CXR: Viewed By Me, Read By Radiologist CXR Interpretation: Yes: Other (Mild patchy right middle lobe atelectasis/infiltrate.Cardiomegaly. Mild elevation of the right hemidiaphragm.) Progress Note: CXR and flu swab ordered. Disposition - Disposition Referrals: Flaca Ramos MD [Staff Provider] - Disposition: HOME/ ROUTINE Disposition Time: 17:50 Condition: GOOD Additional Instructions: CRISTOBAL RODRIGUEZ, thank you for letting us take care of you today. Your provider was Oscar Acharya DO and you were treated for FLU-LIKE SYMPTOMS. The emergency medical care you received today was directed at your acute symptoms. If you were prescribed any medication, please fill it and take as directed. It may take several days for your symptoms to resolve. Return to the Emergency Department if your symptoms worsen, do not improve, or if you have any other problems. Please contact your doctor or call one of the physicians/clinics you have been referred to that are listed on the Patient Visit Information form that is included in your discharge packet. Bring any paperwork you were given at discharge with you along with any medications you are taking to your follow up visit. Our treatment cannot replace ongoing medical care by a primary care provider outside of the emergency department. Thank you for allowing the [facility] team to be part of your care today. Follow up with your primary care doctor in 3-4 days for re-evaluation and further management. Prescriptions: Azithromycin [Zithromax] 250 mg PO DAILY #6 tab Ibuprofen [Motrin] 600 mg PO Q6 PRN #20 tab PRN Reason: Pain, Moderate (4-7) Instructions: Cough in Adults Forms: [facility] (Spanish) - Clinical Impression Clinical Impression: Community acquired pneumonia - Scribe Statement The provider has reviewed the documentation as recorded by the Scribe Matthew Funes All medical record entries made by the Scribe were at my direction and personally dictated by me. I have reviewed the chart and agree that the record accurately reflects my personal performance of the history, physical exam, medical decision making, and the department course for this patient. I have also personally directed, reviewed, and agree with the discharge instructions and disposition.
== END 2017-11-27 18:26 | disposition home or self-care (01) ==
LOC: C.ER 16:34
DX: J18.9 Pneumonia, unspecified organism (principal)

== ENCOUNTER 2018-05-14 09:37 | Emergency (ER) | payer MEDICAID ==
[2018-05-14 09:38] VITALS: BMI 26.9
[2018-05-14 09:51] VITALS: RESP 18
--- NOTE | 2018-05-14 10:49 | C.PDOC ---
History Of Present Illness 42 y/o male with a PMHx of depression, currently on antidepressant medications, presents for evaluation of increasing feelings of depression and helplessness. Denies any SI or HI. On arrival patient is awake and alert, cooperative and calm. Patient denies having any medical complaints at this time. He is followed by psychiatrist Dr. Mendez. Time Seen by Provider: 05/14/18 09:58 Chief Complaint (Nursing): Psychiatric Evaluation History Per: Patient History/Exam Limitations: no limitations Onset/Duration Of Symptoms: Days Current Symptoms Are (Timing): Still Present Associated Symptoms: Depression. denies: Suicidal Thoughts, Suicidal Plan Past Medical History Reviewed: Historical Data, Nursing Documentation, Vital Signs Vital Signs: Last Vital Signs Temp 98.7 F 05/14/18 09:47 Pulse 105 H 05/14/18 09:47 Resp 18 05/14/18 09:47 BP 146/86 05/14/18 09:47 Pulse Ox 95 05/14/18 09:47 - Medical History PMH: Anxiety, Asthma, Depression, Diverticulitis, Gastritis, Gall Bladder Disease (Kerri Hurtado 2003), HTN, Pancreatitis, Post Traumatic Stress Disorder, Sleep Apnea (NO LONGER USES, HAD SURGERY) Denies: Chronic Kidney Disease Surgical History: Appendectomy, Cholecystectomy, Tonsillectomy - [facility] Procedures C.A.T. SCAN OF ABDOMEN (09/19/13) EXC OF ACCESSORY SPLEEN (03/25/13) OPEN AND OTHER SIGMOIDECTOMY (03/25/13) OTH PLASTIC REPAIR PALAT (09/06/13) PERCUTANEOUS ABDOMINAL DRAINAGE (09/19/13) PLASTIC OP ON PHARYNX (09/06/13) URETERAL CATHETERIZATION (03/25/13) Family History: States: Unknown Family Hx - Social History Hx Tobacco Use: Yes Hx Alcohol Use: No Hx Substance Use: No - Immunization History Hx Tetanus Toxoid Vaccination: Yes Hx Influenza Vaccination: No Hx Pneumococcal Vaccination: No Review Of Systems Constitutional: Negative for: Fever, Chills Cardiovascular: Negative for: Chest Pain Respiratory: Negative for: Shortness of Breath Gastrointestinal: Negative for: Vomiting, Abdominal Pain Neurological: Negative for: Weakness, Headache Psych: Positive for: Depression. Negative for: Suicidal ideation (or homicidal ideation) Physical Exam - Physical Exam Appears: Well, Non-toxic, No Acute Distress, Other (Calm, Cooperative) Skin: Normal Color, Warm, No Rash Head: Normacephalic Eye(s): bilateral: PERRL Oral Mucosa: Moist Neck: Trachea Midline, No Midline Cervical Tenderness, Supple Chest: Symmetrical Cardiovascular: Rhythm Regular, No Murmur Respiratory: Normal Breath Sounds, No Accessory Muscle Use, No Rhonchi, No Wheezing Gastrointestinal/Abdominal: Soft, No Tenderness, No Distention Extremity: Bilateral: Atraumatic, Normal Color And Temperature, Normal ROM Neurological/Psych: Oriented x3, Normal Speech Gait: Steady ED Course And Treatment O2 Sat by Pulse Oximetry: 95 (on RA) Pulse Ox Interpretation: Normal Progress Note: PES consult called . Crisis evaluated patient in the ER , case discussed with [id number] and discahge with outpt f/u with recommend at present time, did not meet criteria for admission. Pt remained stable during the ED evaluation. Pt denies suicidal/homocidal ideation. Stable for discharge now. Disposition Counseled Patient/Family Regarding: Diagnosis, Need For Followup - Disposition Referrals: Sebastian Mendez MD [Staff Provider] - Disposition: HOME/ ROUTINE Disposition Time: 11:53 Condition: STABLE Additional Instructions: Follow up with Psychiatrist in 2-3 days for re-evaluation. Return if any worsening or new changes Instructions: Depression, Adult (DC) Forms: [employer] (Bengali) - Clinical Impression Clinical Impression: Depression - PA / GRAPE GROWER / Resident Statement MD/DO has reviewed & agrees with the documentation as recorded. - Scribe Statement The provider has reviewed the documentation as recorded by the Scribe Nia Lanier All medical record entries made by the Scribe were at my direction and personally dictated by me. I have reviewed the chart and agree that the record accurately reflects my personal performance of the history, physical exam, medical decision making, and the department course for this patient. I have also personally directed, reviewed, and agree with the discharge instructions and disposition.
[2018-05-14 12:10] VITALS: BP 127/83; PULSE 66; TEMP 98; O2SAT 96
== END 2018-05-14 12:00 | disposition home or self-care (01) ==
LOC: C.ER 09:37
DX: F32.9 Major depressive disorder, single episode, unspecified (principal)

== ENCOUNTER 2018-07-03 07:28 | Outpatient (CLI) | payer MEDICAID | END 2018-07-03 07:29 | disposition home or self-care (01) | LOC: C.LAB 07:28 | DX: E53.8 Deficiency of other specified B group vitamins (principal) ==

== ENCOUNTER 2018-07-18 06:26 | Day surgery (SDC) | payer MEDICAID ==
[2018-07-18 07:05] VITALS: RESP 19; O2SAT 99
[2018-07-18 07:09] VITALS: BMI 24.9
[2018-07-18] MEDS ORDERED: Propofol 10 mg/ml Inj (20 ML) ONE (09:19)
[2018-07-18] MEDS ORDERED: Lidocaine Hydrochloride 5 ML INJ ONE (09:19)
[2018-07-18 10:42] VITALS: TEMP 98
[2018-07-18 10:55] VITALS: BP 116/65; PULSE 83
== END 2018-07-18 10:45 | disposition home or self-care (01) ==
LOC: C.ENDO 06:26
PROVIDERS: ATTEND Internal Medicine Gastroenterology
DX: Z12.11 Encounter for screening for malignant neoplasm of colon (principal); K63.5 Polyp of colon; K29.50 Unspecified chronic gastritis without bleeding; K64.1 Second degree hemorrhoids; K21.0 Gastro-esophageal reflux disease with esophagitis; Z87.19 Personal history of other diseases of the digestive system; Z98.0 Intestinal bypass and anastomosis status; I10 Essential (primary) hypertension; G47.33 Obstructive sleep apnea (adult) (pediatric); J45.909 Unspecified asthma, uncomplicated
CPT/HCPCS: 43239; 45385; 88305; 88312; 88313; 88342; J2704; J3010